=== PATIENT | male | born 1940 | race Caucasian/White ===

== ENCOUNTER → 2016-07-06 | Outpatient (CLI) | payer BC ==
[2011-05-29 14:46] VITALS: BP 112/65
[~2016-07-06] MED LIST: ADVAIR DISKUS 21 DSK IH; ADVAIR DISKUS 51 DSK IH; ALBUTEROL2.5 MG/3 M IH; AMLODIPINE BESY10 MG PO; ASPIRIN 81M81 MG/TA2 PO; ASTELIN NASAL S34 ML NS; COMBIVENT INH14.7 GM IH; DIOVAN HCT 12.51 TAB PO; FISH OIL 1000MG1 CAP PO; FORTAMET1000 MG PO; GLIPIZIDE XL10 MG PO; IPRATROPIUM BROM3 M1 IH; LEVAQUIN 750MG750 M1 PO; LEVOTHYROXIN0.125 MG PO; PRECOSE100 M1 PO; PREDNISONE20 M1 PO; PREDNISONE20 MG PO; PROPRANOLOL HCL80 M1 PO; ZOCOR40 MG PO
== END ==
LOC: LAB 09:21
DX: I10 Essential (primary) hypertension (principal); N18.3 Chronic kidney disease, stage 3 (moderate); J44.9 Chronic obstructive pulmonary disease, unspecified; H61.23 Impacted cerumen, bilateral; R60.9 Edema, unspecified

== ENCOUNTER → 2018-02-14 | Outpatient (CLI) | payer BC ==
[~2018-02-14] VITALS: Ht 165.1 cm; Wt 96.4 kg
[~2018-02-14] MED LIST changes: +ATIVAN1 M1 PO; +ATORVASTATIN CA20 MG PO; +BASAGLAR K100 UNIT/1 SQ; +BYSTOLIC10 MG PO; +CARBIDOPA/LEVODOPA PO; +COZAAR 50MG50 MG/TAB PO; +DALIRESP500 MCG PO; +FLOMAX0.4 MG PO; +HUMALOG KWIKPEN SQ; +LEVOTHYROXIN0.088 MG PO; -LEVOTHYROXIN0.125 MG PO; +ONGLYZA5 MG PO; +PANTOPRAZOLE SO40 MG PO; +PULMICORT0.5 MG/2 M IH; +SERTRALINE HYD100 MG PO; +SYNTHROID RP0.1 MG PO; +WELLBUTRIN 75MG75 MG PO; +XALATAN 2.5 ML2.5 ML OU
[2018-02-14 14:58] LABS: HEMATOCRIT 37.7 % (42.0-52.0); HEMOGLOBIN 11.7 g/dL (13.5-18.0); MEAN CELL VOLUME 92 fl (78-100); MEAN CORPUSCULAR HEMOGLOBIN 28 pg (27-31); MEAN CORPUSCULAR HGB CONC 31 g/dL (33-37); MEAN PLATELET VOLUME 11.4 fl (7.4-10.4); PLATELET COUNT 196 K/mm3 (130-400); RED BLOOD COUNT 4.12 M/mm3 (4.20-5.60); RED CELL DISTRIBUTION WIDTH 19.5 % (11.5-14.5); WHITE BLOOD COUNT 10.4 K/mm3 (4.8-10.8)
[2018-02-14 15:08] LABS: ALBUMIN 4.1 g/dL (3.5-5.0); CALCIUM 9.1 mg/dL (8.4-10.2); POTASSIUM 5.2 mmol/L (3.6-5.0); TOTAL BILIRUBIN 0.3 mg/dL (0.2-1.3); TOTAL PROTEIN 6.5 g/dL (6.3-8.2)
[2018-02-14 15:12] VITALS: BP 138/58
[2018-02-14 16:04] LABS: LYMPHOCYTE 7 % (20-51); MONOCYTE 5 % (3-10); NEUTROPHILS 88 % (42-75)
[2018-02-14 16:05] LABS: MICROCYTOSIS 1+; OVALOCYTES 1+; TEAR DROP CELLS 1+
== END ==
LOC: RAD 14:20
PROVIDERS: Family Medicine
DX: Z01.818 Encounter for other preprocedural examination (principal); E11.36 Type 2 diabetes mellitus with diabetic cataract; E03.9 Hypothyroidism, unspecified

== ENCOUNTER → 2018-02-27 | Day surgery (SDC) | payer MEDICARE ==
[2018-02-14 15:12] VITALS: BP 138/58
== END ==
LOC: MSO 09:52
DX: H25.041 Posterior subcapsular polar age-related cataract, right eye (principal); Z99.81 Dependence on supplemental oxygen; Z79.899 Other long term (current) drug therapy; Z79.4 Long term (current) use of insulin; Z88.0 Allergy status to penicillin; Z88.2 Allergy status to sulfonamides
CPT/HCPCS: 00142; A9270-GY; J0171; J2405; V2632

== ENCOUNTER 2018-05-23 11:44 | Emergency (ER) | payer MEDICARE ==
[~2018-05-23] VITALS: Ht 165.1 cm; Wt 99.5 kg
[~2018-05-23 11:44] MED LIST changes: -AMLODIPINE BESY10 MG PO; -ASPIRIN 81M81 MG/TA2 PO; +ASPIRIN ADULT L81 M3 PO; +NORVASC 10MG10 MG PO
[2018-05-23 12:44] LABS: HEMATOCRIT 41.8 % (42.0-52.0); HEMOGLOBIN 12.9 g/dL (13.5-18.0); MEAN CELL VOLUME 91 fl (78-100); MEAN CORPUSCULAR HEMOGLOBIN 28 pg (27-31); MEAN CORPUSCULAR HGB CONC 31 g/dL (33-37); MEAN PLATELET VOLUME 10.7 fl (7.4-10.4); PLATELET COUNT 166 K/mm3 (130-400); RED BLOOD COUNT 4.59 M/mm3 (4.20-5.60); RED CELL DISTRIBUTION WIDTH 16.7 % (11.5-14.5); WHITE BLOOD COUNT 11.4 K/mm3 (4.8-10.8)
[2018-05-23 13:09] LABS: ALBUMIN 3.8 g/dL (3.5-5.0); CALCIUM 9.1 mg/dL (8.4-10.2); POTASSIUM 4.5 mmol/L (3.6-5.0); TOTAL BILIRUBIN 0.4 mg/dL (0.2-1.3); TOTAL PROTEIN 6.6 g/dL (6.3-8.2)
[2018-05-23] MEDS ORDERED: ALBUTEROL2.5 MG/3 M IH (13:12)
[2018-05-23] MEDS ORDERED: TRELEGY ELLIPT1 EACH IH (13:13)
[2018-05-23] MEDS ORDERED: PIMOZIDE2 MG PO (13:14)
[2018-05-23 13:29] LABS: BAND 1 % (0-10); LYMPHOCYTE 14 % (20-51); MONOCYTE 8 % (3-10); NEUTROPHILS 76 % (42-75)
[2018-05-23 15:06] VITALS: BP 153/64
[2018-05-23 15:23] LABS: URINE APPEARANCE CLEAR; URINE COLOR YELLOW
[2018-05-23 15:24] LABS: URINE BILIRUBIN NEGATIVE (NEGATIVE); URINE BLOOD NEGATIVE (NEGATIVE); URINE GLUCOSE NEGATIVE (NEGATIVE); URINE KETONE NEGATIVE (NEGATIVE); URINE LEUKOCYTE ESTERASE NEGATIVE (NEGATIVE); URINE NITRATE NEGATIVE (NEGATIVE); URINE PROTEIN(semi-quant) TRACE mg/dL (NEGATIVE); URINE UROBILINOGEN NORMAL (NORMAL); URINE WBC 0-1 /hpf (0-3)
== END 2018-05-23 15:06 | disposition other institution (70) ==
LOC: ED 11:44
PROVIDERS: Nurse Practitioner Primary Care
DX: J44.1 Chronic obstructive pulmonary disease with (acute) exacerbation (principal); J22 Unspecified acute lower respiratory infection; R09.02 Hypoxemia; E11.9 Type 2 diabetes mellitus without complications; I11.9 Hypertensive heart disease without heart failure; I25.10 Atherosclerotic heart disease of native coronary artery without angina pectoris; I25.2 Old myocardial infarction; E78.5 Hyperlipidemia, unspecified; K21.9 Gastro-esophageal reflux disease without esophagitis; I73.9 Peripheral vascular disease, unspecified; G47.33 Obstructive sleep apnea (adult) (pediatric); E07.9 Disorder of thyroid, unspecified; Z79.4 Long term (current) use of insulin; Z79.82 Long term (current) use of aspirin; Z98.890 Other specified postprocedural states
CPT/HCPCS: J2930; J7030

== ENCOUNTER 2018-05-23 14:42 | Inpatient (IN) | payer MEDICARE ==
[~2018-05-23] VITALS: Ht 165.1 cm; Wt 145.7 kg
[~2018-05-23 14:42] MED LIST changes: +PIMOZIDE2 MG PO; +TRELEGY ELLIPT1 EACH IH
[2018-05-23 15:38] VITALS: BP 153/64
[2018-05-23 15:54] VITALS: BP 153/64
[2018-05-23 18:31] VITALS: BP 143/76
[2018-05-23 22:48] VITALS: BP 149/61
[2018-05-24 03:31] VITALS: BP 126/61
[2018-05-24 06:14] VITALS: BP 133/65
[2018-05-24 06:23] LABS: HEMATOCRIT 36.6 % (42.0-52.0); HEMOGLOBIN 11.6 g/dL (13.5-18.0); MEAN CELL VOLUME 91 fl (78-100); MEAN CORPUSCULAR HEMOGLOBIN 29 pg (27-31); MEAN CORPUSCULAR HGB CONC 32 g/dL (33-37); PLATELET COUNT 156 K/mm3 (130-400); RED BLOOD COUNT 4.04 M/mm3 (4.20-5.60); RED CELL DISTRIBUTION WIDTH 16.3 % (11.5-14.5); WHITE BLOOD COUNT 10.1 K/mm3 (4.8-10.8)
[2018-05-24 07:01] LABS: ALBUMIN 3.4 g/dL (3.5-5.0); AST-SGOT 20 U/L (17-59); CALCIUM 8.4 mg/dL (8.4-10.2); CARBON DIOXIDE 25 mmol/L (22-30); GLUCOSE 265 mg/dL (75-110); POTASSIUM 4.5 mmol/L (3.6-5.0); SODIUM 137 mmol/L (137-145); TOTAL BILIRUBIN 0.4 mg/dL (0.2-1.3); TOTAL PROTEIN 5.9 g/dL (6.3-8.2)
[2018-05-24 07:04] LABS: ALT/SGPT < 3 U/L (21-72)
[2018-05-24 07:06] LABS: LYMPHOCYTE 2 % (20-51); MONOCYTE 1 % (3-10); NEUTROPHILS 97 % (42-75)
[2018-05-24 11:00] VITALS: BP 198/69
[2018-05-24 14:48] VITALS: BP 145/63
[2018-05-24 18:51] VITALS: BP 154/65
[2018-05-24 23:34] VITALS: BP 149/66
[2018-05-25 02:46] VITALS: BP 150/56
[2018-05-25 06:21] VITALS: BP 139/54
[2018-05-25 11:32] VITALS: BP 139/67
[2018-05-25 14:31] VITALS: BP 146/69
[2018-05-25 19:25] VITALS: BP 152/66
[2018-05-25 23:07] VITALS: BP 136/61
[2018-05-26 03:05] VITALS: BP 162/70
[2018-05-26 06:30] VITALS: BP 166/66
[2018-05-26 08:16] LABS: HEMATOCRIT 38.6 % (42.0-52.0); HEMOGLOBIN 12.2 g/dL (13.5-18.0); MEAN CELL VOLUME 89 fl (78-100); MEAN CORPUSCULAR HEMOGLOBIN 28 pg (27-31); MEAN CORPUSCULAR HGB CONC 32 g/dL (33-37); MEAN PLATELET VOLUME 10.9 fl (7.4-10.4); PLATELET COUNT 164 K/mm3 (130-400); RED BLOOD COUNT 4.35 M/mm3 (4.20-5.60); RED CELL DISTRIBUTION WIDTH 15.8 % (11.5-14.5); WHITE BLOOD COUNT 13.7 K/mm3 (4.8-10.8)
[2018-05-26 08:33] LABS: BAND 2 % (0-10); LYMPHOCYTE 3 % (20-51); MONOCYTE 4 % (3-10); NEUTROPHILS 91 % (42-75)
[2018-05-26 08:36] LABS: CALCIUM 8.9 mg/dL (8.4-10.2); POTASSIUM 4.2 mmol/L (3.6-5.0)
[2018-05-26 11:27] VITALS: BP 119/59
[2018-05-26] MEDS ORDERED: IPRATROPIUM BROM3 M1 IH (14:01)
[2018-05-26] MEDS ORDERED: ZITHROMAX500 M2 PO (14:01)
[2018-05-26] MEDS ORDERED: ENOXAPARIN40 MG/0.1 SQ (14:02)
[2018-05-26] MEDS ORDERED: BUMETANIDE2 M1 PO (14:03)
[2018-05-26] MEDS ORDERED: GUAIFENESIN200 M1 PO (14:05)
[2018-05-26] MEDS ORDERED: BUDESONIDE1 MG/2 ML IH (14:08)
[2018-05-26] MEDS ORDERED: SOLU-MEDRO125 MG/21 IV (14:10)
[2018-05-26] MEDS ORDERED: Patient's Own Medica PO (14:10)
[2018-05-26] MEDS ORDERED: GAS RELIEF 8080 MG PO (14:12)
[2018-05-26 14:55] VITALS: BP 130/63
== END 2018-05-26 15:11 | disposition swing bed (61) | DRG 192 ==
LOC: MED/SURG 14:42
PROVIDERS: Family Medicine; ADMIT Nurse Practitioner Primary Care
DX: J44.1 Chronic obstructive pulmonary disease with (acute) exacerbation (principal); J44.0 Chronic obstructive pulmonary disease with (acute) lower respiratory infection; E03.9 Hypothyroidism, unspecified; I11.0 Hypertensive heart disease with heart failure; I50.9 Heart failure, unspecified; K21.9 Gastro-esophageal reflux disease without esophagitis; E11.9 Type 2 diabetes mellitus without complications; Z79.82 Long term (current) use of aspirin; Z79.4 Long term (current) use of insulin; R09.02 Hypoxemia; J20.9 Acute bronchitis, unspecified; F32.9 Major depressive disorder, single episode, unspecified; L30.9 Dermatitis, unspecified; N40.0 Benign prostatic hyperplasia without lower urinary tract symptoms; R60.0 Localized edema; G25.1 Drug-induced tremor; T38.0X5A Adverse effect of glucocorticoids and synthetic analogues, initial encounter; Y92.239 Unspecified place in hospital as the place of occurrence of the external cause; R58 Hemorrhage, not elsewhere classified; T80.89XA Other complications following infusion, transfusion and therapeutic injection, initial encounter; M79.89 Other specified soft tissue disorders
CPT/HCPCS: C9113; J0456; J1650; J1815; J1956; J2930; J7030; J7050

== ENCOUNTER 2018-05-26 14:19 | Inpatient (IN) | payer MEDICARE ==
[~2018-05-26] VITALS: Ht 165.1 cm; Wt 99.5 kg
[~2018-05-26 14:19] MED LIST changes: +BUDESONIDE1 MG/2 ML IH; +BUMETANIDE2 M1 PO; +ENOXAPARIN40 MG/0.1 SQ; +GAS RELIEF 8080 MG PO; +GUAIFENESIN200 M1 PO; +Patient's Own Medica PO; +SOLU-MEDRO125 MG/21 IV; +ZITHROMAX500 M2 PO
--- NOTE | 2018-05-26 14:43 | NUR ---
Assessment complete. Patient resting in chair at this time. Denies pain. Cont on baseline 2L/NC. Able to voice wants/needs, none at this time. Call light and personal belongings within reach. Will cont to monitor.
[2018-05-26 14:59] VITALS: BP 130/63
[2018-05-26 15:04] VITALS: BP 130/63
[2018-05-26 18:26] VITALS: BP 137/61
--- NOTE | 2018-05-26 18:42 | NUR ---
Reported off to JIM Cuellar
--- NOTE | 2018-05-26 19:30 | NUR ---
Report received from Alejandrina JANG. Up in recliner with oxygen in place at 2L/NC. Denies pain or needs. Visitor in room.
--- NOTE | 2018-05-26 19:45 | NUR ---
Dr. Hermosillo contacted for clarification of Solumedrol. Give 125 MG IV Q 8 hours vs Q 6 as ordered on MAY. Give at -- and 14 then taper per written orders.
--- NOTE | 2018-05-26 20:30 | NUR ---
HS medications given. Takes without difficulty. Assessment completed. Lungs with coarse rhonci and expiratory wheezes. States breathing is improved from admission, can walk to and from BR with less SOB. Has not ambulated out of room. Up ad-bradley but calls for assist PRN. Denies pain, wants or needs. Uses I.S. and pulls 2000 MLx10
[2018-05-27 06:23] VITALS: BP 170/66
[2018-05-27 06:45] VITALS: BP 170/66
--- NOTE | 2018-05-27 06:55 | NUR ---
Report to Dona JANG.
--- NOTE | 2018-05-27 09:00 | NUR ---
Pt sitting up in chair. Reports some dyspnea on exertion but reports its improving. Oxygen on 2L via nasal cannula. Bilateral upper arms edematous and puffy with purple discoloration.
--- NOTE | 2018-05-27 11:03 | NUR ---
dressing changed to skin tear to right upper arm. Non stick telfa placed and wrapped loosely with coban. Pt tolerates well
--- NOTE | 2018-05-27 13:06 | NUR ---
Report received from SUHAIL Carcamo
--- NOTE | 2018-05-27 15:23 | NUR ---
Pt agreeable to going outside in the sunshine for a short time via w/c - 02 continues at 2 L/NC. Pt visits with nurse while outside and tolerates well. Returns to room after about 10 minutes as OT/PT looking to work with him.
--- NOTE | 2018-05-27 15:30 | NUR ---
Pt's arm hit door jam upon entry into bathroom while walking w/ OT. Noted to have superficial skin tear. 4 x 4 applied and coban until pt done ADL's and back in recliner. Mild bleeding.
--- NOTE | 2018-05-27 16:30 | NUR ---
right FA skin tear approximately 3/4 inch in length from earlier cleansed w/ NS, edges well approximated, benzoin applied around perimeter and 1/4 inch steri strips x 2 applied - edges well approximated. Left open to air. No current bleeding.
[2018-05-27 18:25] VITALS: BP 170/71
--- NOTE | 2018-05-27 19:00 | NUR ---
Report to JIM Cuellar.
--- NOTE | 2018-05-27 20:00 | NUR ---
Up in recliner. A/O x4. Denies pain. Oxygen in place at 2L/NC. Uses I.S. and Pulls 2250 ML x10. Uses flutter valve x10 Reps. Assessment completed. Denies wants or needs.
--- NOTE | 2018-05-27 20:20 | NUR ---
Accu-check 427. Vashti LOZANON notified. Follow SS insulin orders along with scheduled Levemir.
--- NOTE | 2018-05-28 05:34 | NUR ---
Awakened for AM medications and vital signs. Bilateral hands noted to be more edematous then last night. [facility]. If not help will try a laxative. [facility] Denies pain. Oxygen in place at 2L/NC.
[2018-05-28 06:12] VITALS: BP 184/66
--- NOTE | 2018-05-28 07:24 | NUR ---
Report to Jeniffer JANG.
--- NOTE | 2018-05-28 17:45 | NUR ---
Patient alert and oriented, pleasant. Cooperates with medication administration and therapy. Reports cough is irritating as he "can't get anything to come up". No complaint of pain, denies needs at this time .
[2018-05-28 18:52] VITALS: BP 180/76
--- NOTE | 2018-05-28 19:30 | NUR ---
REPORT RECEIVED FROM SUHAIL PEREZ
--- NOTE | 2018-05-28 19:47 | NUR ---
Report given to Chelsey Cross RN
--- NOTE | 2018-05-28 20:00 | NUR ---
PATIENT'S SHIFT ASSESSMENT COMPLETE. PATIENT ALERT AND ORIENTED X4. DENIES ANY PAIN OR DISCOMFORTS AT HTIS TIME. REPORTS HAVING SHORTNESS OF BREATH BUT IT IS NOT ANY WORSE THAN BASELINE. PATIENT HAS TIGHT COUGH. PATIENT'S LUNGS DIMINISHED WITH EXP WHEEZES TO LEFT LOWER LOBE. PATIENT STATES "MY LUNGS ARE STILL PRETTY TIGHT" PATIENT HAS EDEMA TO BILAT UPPER EXT. +1 EDEMA TO BILAT LOWER EXT. PATIENT STATES "I DON'T KNOW WHY I STARTED SWELLING UP" PATIENT HAS TELFA SECURED WITH COBAN TO RIGHT UPPER EXT. SKIN TEAR TO RIGHT FOREARM WITH STERI STRIPS IN PLACE. TELFA APPLIED AND SECUIRED WITH COBAN DUE TO AREA DRAINING. PATIENT HAS LARGE DARK PURPLE BRUISE ACROSS LOWER ABD. PATIENT REPORTS BRUISING IS FROM THE NEEDLE STICKS. PATIENT ON OXYGEN VIA NASAL CANNULA AT 2L. PATIENT'S CALL LIGHT WITHIN REACH.
--- NOTE | 2018-05-29 01:42 | NUR ---
report given to tyshawn campos rn
[2018-05-29 06:09] LABS: HEMATOCRIT 39.1 % (42.0-52.0); HEMOGLOBIN 12.3 g/dL (13.5-18.0); MEAN CELL VOLUME 89 fl (78-100); MEAN CORPUSCULAR HEMOGLOBIN 28 pg (27-31); MEAN CORPUSCULAR HGB CONC 32 g/dL (33-37); MEAN PLATELET VOLUME 11.1 fl (7.4-10.4); PLATELET COUNT 139 K/mm3 (130-400); RED BLOOD COUNT 4.38 M/mm3 (4.20-5.60); RED CELL DISTRIBUTION WIDTH 15.6 % (11.5-14.5)
[2018-05-29 06:21] LABS: CALCIUM 8.8 mg/dL (8.4-10.2); POTASSIUM 4.1 mmol/L (3.6-5.0)
[2018-05-29 06:24] VITALS: BP 176/73
[2018-05-29 06:41] LABS: BAND 1 % (0-10)
[2018-05-29 06:42] LABS: LYMPHOCYTE 3 % (20-51); MONOCYTE 4 % (3-10); NEUTROPHILS 92 % (42-75)
--- NOTE | 2018-05-29 11:01 | NUR ---
ASSESSMENT COMPLETED AT 0800. PATIENT SITTING UP IN CHAIR VISITING WITH DR. POWERS. ORDERS WERE WRITTEN TO INCREASE BP MEDICATION WELL NIGHTTIME INSULIN DOSE. DR. POWERS STATED IT IS OK FOR PATIENT TO HAVE MILK AND SOME BEEF OCCASSIONALLY. PATIENT REPORTS PRODUCTIVE COUGH WITH THICK WHITE SPUTUM AND DYSPNEA ON EXERTION. HE DENIES ANY PAIN COMPLAINTS AND TOOK HIS ORAL MEDICATIONS WITHOUT DIFFICULTIES. NOTED SKIN TEARS TO RIGHT FOREARM AND UPPER ARM, CLEANSED WITH NS AND APPLIED TELFA WITH COBAN FOR SECURITY. PATIENT REPORTS BM YESTERDAY BUT MAY NEED PRUNE JUICE TODAY. EDEMATOUS TO BILATERAL UPPER AND LOWER EXTREMITIES. DR. POWERS ORDERD FOR HEAT THERAPY TO LEFT ARM AND ELEVATION.
--- NOTE | 2018-05-29 15:33 | NUR ---
Pt reports increased SOB and labored breathing. Worse when working with PT. Pt very frustrated "I wasnt even hardly doing anything" Pt continues to voice concerns that he is not improving or getting better. PRN albuterol treatment provided. Pt encouraged to continue working with PT and on breathing treatments. K pad applied to left arm.
[2018-05-29 19:11] VITALS: BP 125/76
--- NOTE | 2018-05-29 19:45 | NUR ---
Patient sitting up in chair, is alert and oriented x 3, resp even/unlabored at rest, has bilateral forearms elevated on pillows and towels, clear yellow drainage noted from both forearms, both arms very swollen, skin thin and tight, weeping noted, patient also noted to have rounded firm abdomen, when asked, he admits to feeling bloated and bigger belly than normal, will continue to monitor, call light within reach, patient denies any needs at this time
--- NOTE | 2018-05-29 22:15 | NUR ---
Patient sitting up in bed with some difficulty breathing, c/o "not getting any air" nurse checks oxygen, it is on 2L/NC at this time and working properly, patient just got himself from the chair, into the bathroom to void and perform HS cares and then back into bed, he is very wiped out and having trouble breathing, takes several minutes to recover, is frusterated that he doesn't seem to be getting better and cannot tolerate even minimal exercise, reassurance given and nurse stayed with patient until he was breathing better, will continue to monitor
[2018-05-30 06:20] VITALS: BP 133/71
[2018-05-30 12:02] LABS: ALBUMIN 3.1 g/dL (3.5-5.0); POTASSIUM 4.4 mmol/L (3.6-5.0); TOTAL BILIRUBIN 0.5 mg/dL (0.2-1.3); TOTAL PROTEIN 5.5 g/dL (6.3-8.2)
[2018-05-30 12:04] LABS: D-DIMER 0.67 mg/L FEU (0.15-0.50)
[2018-05-30 12:12] LABS: HEMATOCRIT 39.4 % (42.0-52.0); HEMOGLOBIN 12.5 g/dL (13.5-18.0); MEAN CELL VOLUME 90 fl (78-100); MEAN CORPUSCULAR HEMOGLOBIN 29 pg (27-31); MEAN CORPUSCULAR HGB CONC 32 g/dL (33-37); MEAN PLATELET VOLUME 11.3 fl (7.4-10.4); PLATELET COUNT 145 K/mm3 (130-400); RED BLOOD COUNT 4.39 M/mm3 (4.20-5.60); RED CELL DISTRIBUTION WIDTH 15.7 % (11.5-14.5)
[2018-05-30 12:17] LABS: WHITE BLOOD COUNT 20.7 K/mm3 (4.8-10.8)
[2018-05-30 12:34] LABS: LYMPHOCYTE 5 % (20-51); MONOCYTE 2 % (3-10); NEUTROPHILS 93 % (42-75)
--- NOTE | 2018-05-30 15:16 | NUR ---
PRACTICAL NURSE visited pt. and discussed CT scan result with pt and his (and 2 other family--young adult children?). Minimal improvement in clearing of lungs; PRACTICAL NURSE suggested transfer to [facility] in [place] so he can be followed closely by in-house pulmonogist; he was hesitant but agreeable. Informed of increasing WBC (now >20,000) and other abnormal lab values of concern.
[2018-05-30 16:58] VITALS: BP 133/71
--- NOTE | 2018-05-30 17:42 | NUR ---
Pt alert and Ox4. Aware of transfer to [facility] and purpose. v/s at 1630 97.8 F (oral); 158/78; 80; 22 with O2 2 L/min, SaO2 95%. FSBS 138 and no need for Novolog insulin. Pt. has had supper and meds scheduled for 1700. EMS here for transport with O2 @ 2 L/min. and monitoring. Pt. left [facility] at 1730 via stretcher. [phone] at 1735.
== END 2018-05-30 17:35 | disposition short-term general hospital (02) | DRG 948 ==
LOC: MED/SURG 14:19
PROVIDERS: Nurse Practitioner Family; ADMIT Family Medicine
DX: R53.81 Other malaise (principal); J44.1 Chronic obstructive pulmonary disease with (acute) exacerbation; I10 Essential (primary) hypertension; I50.9 Heart failure, unspecified; E11.9 Type 2 diabetes mellitus without complications; Z79.4 Long term (current) use of insulin; F41.8 Other specified anxiety disorders; Z85.89 Personal history of malignant neoplasm of other organs and systems; R25.1 Tremor, unspecified; Z87.891 Personal history of nicotine dependence
CPT/HCPCS: J1650; J1815; J1940; J2930; Q9967

== ENCOUNTER → 2018-07-24 | Day surgery (SDC) | payer MEDICARE ==
[2018-07-24 10:25] LABS: CALCIUM 9.5 mg/dL (8.8-10.0); POTASSIUM 4.1 mmol/L (3.5-5.1)
== END ==
LOC: MSO 07:21
PROVIDERS: Ophthalmology
DX: H26.9 Unspecified cataract (principal); E11.36 Type 2 diabetes mellitus with diabetic cataract; J44.9 Chronic obstructive pulmonary disease, unspecified; I10 Essential (primary) hypertension; Z88.0 Allergy status to penicillin; Z79.4 Long term (current) use of insulin; Z88.2 Allergy status to sulfonamides
CPT/HCPCS: 00142; A9270-GY; J0171; J2405; V2632

== ENCOUNTER → 2019-04-25 | Outpatient (CLI) | payer MEDICARE | LOC: RAD 14:56 | DX: J44.1 Chronic obstructive pulmonary disease with (acute) exacerbation (principal); J01.90 Acute sinusitis, unspecified; G47.33 Obstructive sleep apnea (adult) (pediatric) ==

== ENCOUNTER → 2019-09-17 | Outpatient (CLI) | payer MEDICARE | LOC: RAD 09:48 | DX: M51.36 Other intervertebral disc degeneration, lumbar region (principal); M43.16 Spondylolisthesis, lumbar region; J44.9 Chronic obstructive pulmonary disease, unspecified; I51.9 Heart disease, unspecified; I25.10 Atherosclerotic heart disease of native coronary artery without angina pectoris; M79.604 Pain in right leg ==

== ENCOUNTER → 2020-02-06 | Outpatient (CLI) | payer MEDICARE ==
[2020-02-06 12:15] LABS: POTASSIUM 3.9 mmol/L (3.5-5.1)
[2020-02-06 12:16] LABS: CALCIUM 9.3 mg/dL (8.3-10.5)
== END ==
LOC: LAB 11:05
PROVIDERS: Family Medicine
DX: M54.40 Lumbago with sciatica, unspecified side (principal); N18.30 Chronic kidney disease, stage 3 unspecified

== ENCOUNTER 2020-08-12 11:37 | Emergency (ER) | payer MEDICARE ==
[2020-08-12 12:33] LABS: BASO # 0.05 (0.02-0.10); EOS # 0.18 (0.04-0.40); EOS % 1.7 % (0.0-4.0); HEMATOCRIT 31.8 % (42.0-52.0); HEMOGLOBIN 9.7 g/dL (13.5-18.0); LYMPH# 0.52 (1.50-4.00); MEAN CELL VOLUME 91 fl (78-100); MEAN CORPUSCULAR HEMOGLOBIN 28 pg (27-31); MEAN CORPUSCULAR HGB CONC 31 g/dL (33-37); MEAN PLATELET VOLUME 11.2 fl (7.4-10.4); MONO # 0.62 (0.20-0.80); NEU # 9.22 (1.40-6.50); PLATELET COUNT 195 K/mm3 (130-400); RED BLOOD COUNT 3.51 M/mm3 (4.20-5.60); RED CELL DISTRIBUTION WIDTH 17.3 % (11.5-14.5); WHITE BLOOD COUNT 10.7 K/mm3 (4.8-10.8)
[2020-08-12 12:36] LABS: ALBUMIN 3.7 g/dL (3.4-4.8); SODIUM 139 mmol/L (136-145)
[2020-08-12 12:37] LABS: CALCIUM 9.3 mg/dL (8.3-10.5)
[2020-08-12 12:38] LABS: GLUCOSE 116 mg/dL (75-110)
[2020-08-12 12:39] LABS: TOTAL PROTEIN 6.1 g/dL (6.2-8.1)
[2020-08-12 12:40] LABS: CARBON DIOXIDE 25 mmol/L (23-31); TOTAL BILIRUBIN 0.3 mg/dL (0.2-1.2)
[2020-08-12 12:44] LABS: AST-SGOT 19 U/L (5-34)
[2020-08-12 12:45] LABS: ALT/SGPT 12 U/L (0-55)
[2020-08-12 12:53] LABS: TROPONIN-I < 0.03 ng/mL (<0.030)
[2020-08-12] MEDS ORDERED: NORVASC 10MG10 MG PO (13:02)
[2020-08-12] MEDS ORDERED: LIPITOR 40MG TA40 MG PO (13:05)
[2020-08-12] MEDS ORDERED: CLOPIDOGREL PO (13:06)
[2020-08-12 13:08] LABS: D-DIMER 0.78 mg/L FEU (0.15-0.50)
[2020-08-12] MEDS ORDERED: FEXOFENADINE H180 M1 PO (13:08)
[2020-08-12 14:53] LABS: URINE APPEARANCE CLEAR; URINE COLOR YELLOW; URINE PROTEIN(semi-quant) TRACE mg/dL (NEGATIVE)
[2020-08-12 14:54] LABS: URINE BILIRUBIN NEGATIVE (NEGATIVE); URINE BLOOD TRACE (NEGATIVE); URINE GLUCOSE NEGATIVE (NEGATIVE); URINE KETONE NEGATIVE (NEGATIVE); URINE LEUKOCYTE ESTERASE NEGATIVE (NEGATIVE); URINE NITRATE NEGATIVE (NEGATIVE); URINE UROBILINOGEN NORMAL (NORMAL)
[2020-08-12] MEDS ORDERED: ELIQUIS5 M1 PO (18:25)
[2020-08-12 18:49] VITALS: BP 163/62
== END 2020-08-12 18:50 | disposition home or self-care (01) ==
LOC: ED 11:37
PROVIDERS: Nurse Practitioner Family
DX: J43.9 Emphysema, unspecified (principal); M79.89 Other specified soft tissue disorders; I25.10 Atherosclerotic heart disease of native coronary artery without angina pectoris; I25.2 Old myocardial infarction; I50.9 Heart failure, unspecified; E11.9 Type 2 diabetes mellitus without complications; Z87.891 Personal history of nicotine dependence; Z79.82 Long term (current) use of aspirin; Z79.4 Long term (current) use of insulin; Z79.02 Long term (current) use of antithrombotics/antiplatelets; Z79.51 Long term (current) use of inhaled steroids
CPT/HCPCS: J0696; J1940; J7030; Q9967

== ENCOUNTER 2021-03-09 07:46 | Emergency (ER) | payer MEDICARE ==
[~2021-03-09] VITALS: Ht 165.1 cm; Wt 97.3 kg
[~2021-03-09 07:46] MED LIST changes: +CLOPIDOGREL PO; +ELIQUIS5 M1 PO; +FEXOFENADINE H180 M1 PO; +LIPITOR 40MG TA40 MG PO
[2021-03-09 08:33] LABS: HEMOGLOBIN 12.5 g/dL (13.5-18.0); MEAN CELL VOLUME 92 fl (78-100); MEAN CORPUSCULAR HEMOGLOBIN 29 pg (27-31); MEAN CORPUSCULAR HGB CONC 31 g/dL (33-37); PLATELET COUNT 162 K/mm3 (130-400); RED BLOOD COUNT 4.33 M/mm3 (4.20-5.60); RED CELL DISTRIBUTION WIDTH 16.4 % (11.5-14.5); WHITE BLOOD COUNT 9.9 K/mm3 (4.8-10.8)
[2021-03-09 08:45] LABS: ALBUMIN 3.7 g/dL (3.4-4.8); SODIUM 140 mmol/L (136-145)
[2021-03-09 08:46] LABS: CALCIUM 9.4 mg/dL (8.3-10.5)
[2021-03-09 08:47] LABS: GLUCOSE 135 mg/dL (75-110)
[2021-03-09 08:48] LABS: CARBON DIOXIDE 25 mmol/L (23-31)
[2021-03-09 08:49] LABS: TOTAL BILIRUBIN 0.3 mg/dL (0.2-1.2)
[2021-03-09 08:53] LABS: AST-SGOT 21 U/L (5-34)
[2021-03-09 08:54] LABS: ALT/SGPT 14 U/L (0-55)
[2021-03-09 08:58] LABS: LYMPHOCYTE 4 % (20-51); MONOCYTE 5 % (3-10); NEUTROPHILS 85 % (42-75)
[2021-03-09 09:00] LABS: TROPONIN-I < 0.030 ng/mL (<0.030)
[2021-03-09] MEDS ORDERED: ZITHROMAX Z PA250 MG PO (09:57)
[2021-03-09] MEDS ORDERED: PREDNISONE20 M1 PO (09:57)
[2021-03-09 10:08] VITALS: BP 148/64
[2021-03-09] MEDS ORDERED: SKIN TREATMENT400 GM TP (11:22)
== END 2021-03-09 10:10 | disposition home or self-care (01) ==
LOC: ED 07:46
PROVIDERS: Physician Assistant
DX: J40 Bronchitis, not specified as acute or chronic (principal); J44.1 Chronic obstructive pulmonary disease with (acute) exacerbation; I13.0 Hypertensive heart and chronic kidney disease with heart failure and stage 1 through stage 4 chronic kidney disease, or unspecified chronic kidney disease; N18.30 Chronic kidney disease, stage 3 unspecified; N40.0 Benign prostatic hyperplasia without lower urinary tract symptoms; I25.10 Atherosclerotic heart disease of native coronary artery without angina pectoris; D64.9 Anemia, unspecified; E78.00 Pure hypercholesterolemia, unspecified; E66.9 Obesity, unspecified; D50.9 Iron deficiency anemia, unspecified; E11.22 Type 2 diabetes mellitus with diabetic chronic kidney disease; I50.30 Unspecified diastolic (congestive) heart failure; Z87.891 Personal history of nicotine dependence; Z79.899 Other long term (current) drug therapy; Z79.51 Long term (current) use of inhaled steroids; Z79.01 Long term (current) use of anticoagulants; Z79.82 Long term (current) use of aspirin; Z79.4 Long term (current) use of insulin; Z79.02 Long term (current) use of antithrombotics/antiplatelets; Z68.35 Body mass index [BMI] 35.0-35.9, adult; Z20.822 Contact with and (suspected) exposure to COVID-19
CPT/HCPCS: J2930

== ENCOUNTER 2021-08-09 08:10 | Emergency (ER) | payer MEDICARE ==
[~2021-08-09] VITALS: Wt 97.3 kg
[~2021-08-09 08:10] MED LIST changes: +SKIN TREATMENT400 GM TP; +ZITHROMAX Z PA250 MG PO
[2021-08-09 09:03] LABS: ALBUMIN 3.8 g/dL (3.4-4.8)
[2021-08-09 09:04] LABS: POTASSIUM 4.1 mmol/L (3.5-5.1)
[2021-08-09 09:05] LABS: CALCIUM 9.4 mg/dL (8.3-10.5)
[2021-08-09 09:06] LABS: TOTAL PROTEIN 6.1 g/dL (6.2-8.1)
[2021-08-09 09:08] LABS: TOTAL BILIRUBIN 0.3 mg/dL (0.2-1.2)
[2021-08-09 10:04] LABS: HEMATOCRIT 23.1 % (42.0-52.0); MEAN CELL VOLUME 89 fl (78-100); MEAN CORPUSCULAR HEMOGLOBIN 26 pg (27-31); MEAN CORPUSCULAR HGB CONC 29 g/dL (33-37); MEAN PLATELET VOLUME 11.9 fl (7.4-10.4); PLATELET COUNT 199 K/mm3 (130-400); RED CELL DISTRIBUTION WIDTH 17.6 % (11.5-14.5); WHITE BLOOD COUNT 9.2 K/mm3 (4.8-10.8)
[2021-08-09 10:06] LABS: HEMOGLOBIN 6.7 g/dL (13.5-18.0)
[2021-08-09 10:21] LABS: BAND 2 % (0-10); LYMPHOCYTE 3 % (20-51); MONOCYTE 2 % (3-10); NEUTROPHILS 92 % (42-75)
[2021-08-09 10:22] LABS: HYPOCHROMIA 1+
[2021-08-09 10:24] LABS: TEAR DROP CELLS 1+
[2021-08-09 11:42] LABS: URINE APPEARANCE CLEAR; URINE BILIRUBIN NEGATIVE (NEGATIVE); URINE BLOOD NEGATIVE (NEGATIVE); URINE COLOR LIGHT YELLOW; URINE GLUCOSE NEGATIVE (NEGATIVE); URINE KETONE NEGATIVE (NEGATIVE); URINE LEUKOCYTE ESTERASE 1+ (NEGATIVE); URINE NITRATE NEGATIVE (NEGATIVE); URINE PROTEIN(semi-quant) NEGATIVE (NEGATIVE); URINE UROBILINOGEN NORMAL (NORMAL)
[2021-08-09 13:11] VITALS: BP 129/57
== END 2021-08-09 12:42 | disposition short-term general hospital (02) ==
LOC: ED 08:10
PROVIDERS: Physician Assistant
DX: K92.2 Gastrointestinal hemorrhage, unspecified (principal); J44.9 Chronic obstructive pulmonary disease, unspecified; I13.0 Hypertensive heart and chronic kidney disease with heart failure and stage 1 through stage 4 chronic kidney disease, or unspecified chronic kidney disease; I50.9 Heart failure, unspecified; E11.22 Type 2 diabetes mellitus with diabetic chronic kidney disease; N18.30 Chronic kidney disease, stage 3 unspecified; D63.1 Anemia in chronic kidney disease; Z28.310 Unvaccinated for COVID-19
CPT/HCPCS: C9113; J2930; J7030

== ENCOUNTER → 2021-08-19 | Outpatient (CLI) | payer MEDICARE ==
[2021-08-19 11:26] LABS: HEMATOCRIT 36.5 % (42.0-52.0); HEMOGLOBIN 10.9 g/dL (13.5-18.0); MEAN CELL VOLUME 88 fl (78-100); MEAN CORPUSCULAR HEMOGLOBIN 26 pg (27-31); MEAN CORPUSCULAR HGB CONC 30 g/dL (33-37); PLATELET COUNT 228 K/mm3 (130-400); RED BLOOD COUNT 4.16 M/mm3 (4.20-5.60); RED CELL DISTRIBUTION WIDTH 18.9 % (11.5-14.5); WHITE BLOOD COUNT 16.2 K/mm3 (4.8-10.8)
[2021-08-19 11:29] LABS: POTASSIUM 3.7 mmol/L (3.5-5.1)
[2021-08-19 11:30] LABS: CALCIUM 9.5 mg/dL (8.3-10.5)
[2021-08-19 12:43] LABS: LYMPHOCYTE 3 % (20-51); MONOCYTE 3 % (3-10); NEUTROPHILS 92 % (42-75)
[2021-08-19 12:46] LABS: TEAR DROP CELLS 1+
== END ==
LOC: LAB 11:06
PROVIDERS: Family Medicine
DX: J44.9 Chronic obstructive pulmonary disease, unspecified (principal); D64.9 Anemia, unspecified; I10 Essential (primary) hypertension

== ENCOUNTER 2022-06-08 07:01 | Emergency (ER) | payer MEDICARE ==
[~2022-06-08] VITALS: Wt 95.1 kg
[2022-06-08 08:02] LABS: HEMATOCRIT 42.6 % (42.0-52.0); HEMOGLOBIN 13.6 g/dL (13.5-18.0); MEAN CELL VOLUME 91 fl (78-100); MEAN CORPUSCULAR HEMOGLOBIN 29 pg (27-31); MEAN CORPUSCULAR HGB CONC 32 g/dL (33-37); MEAN PLATELET VOLUME 11.5 fl (7.4-10.4); PLATELET COUNT 141 K/mm3 (130-400); RED BLOOD COUNT 4.69 M/mm3 (4.20-5.60); RED CELL DISTRIBUTION WIDTH 14.5 % (11.5-14.5); WHITE BLOOD COUNT 10.2 K/mm3 (4.8-10.8)
[2022-06-08 08:10] LABS: ALBUMIN 3.4 g/dL (3.4-4.8); POTASSIUM 4.3 mmol/L (3.5-5.1); SODIUM 138 mmol/L (136-145)
[2022-06-08 08:11] LABS: CALCIUM 9.5 mg/dL (8.3-10.5)
[2022-06-08 08:13] LABS: GLUCOSE 197 mg/dL (75-110); TOTAL PROTEIN 5.6 g/dL (6.2-8.1)
[2022-06-08 08:14] LABS: CARBON DIOXIDE 24 mmol/L (23-31); TOTAL BILIRUBIN 0.3 mg/dL (0.2-1.2)
[2022-06-08 08:18] LABS: AST-SGOT 19 U/L (5-34)
[2022-06-08 08:19] LABS: ALT/SGPT 13 U/L (0-55)
[2022-06-08 08:30] LABS: TROPONIN-I < 0.030 ng/mL (<0.030)
[2022-06-08 08:37] LABS: LYMPHOCYTE 4 % (20-51); MONOCYTE 4 % (3-10); NEUTROPHILS 91 % (42-75)
[2022-06-08 08:38] LABS: OVALOCYTES 1+
[2022-06-08] MEDS ORDERED: PREDNISONE20 MG PO (09:14)
[2022-06-08 09:40] VITALS: BP 164/76
== END 2022-06-08 09:30 | disposition home or self-care (01) ==
LOC: ED 07:01
PROVIDERS: Family Medicine
DX: J44.9 Chronic obstructive pulmonary disease, unspecified (principal); E66.9 Obesity, unspecified; Z99.81 Dependence on supplemental oxygen; Z86.718 Personal history of other venous thrombosis and embolism; Z79.01 Long term (current) use of anticoagulants
CPT/HCPCS: J2930

== ENCOUNTER → 2023-01-03 | Outpatient (CLI) | payer MEDICARE | LOC: LAB 13:42 | DX: I10 Essential (primary) hypertension (principal); M54.32 Sciatica, left side; E78.2 Mixed hyperlipidemia; D63.8 Anemia in other chronic diseases classified elsewhere; Z95.4 Presence of other heart-valve replacement ==

== ENCOUNTER → 2024-02-20 | Outpatient (CLI) | payer MEDICARE | LOC: RAD 09:38 | DX: R07.81 Pleurodynia (principal); W19.XXXA Unspecified fall, initial encounter ==

== ENCOUNTER → 2024-06-06 | Outpatient (REF) | payer MEDICARE ==
[2024-06-06 10:06] LABS: PH-URINE 5.5 (5.0 - 8.0); URINE APPEARANCE SLIGHTLY CLOUDY (CLEAR); URINE BILIRUBIN NEGATIVE (NEGATIVE); URINE COLOR YELLOW (YELLOW); URINE GLUCOSE NEGATIVE (NEGATIVE); URINE KETONE NEGATIVE (NEGATIVE); URINE PROTEIN(semi-quant) 2+ (NEGATIVE)
[2024-06-06 10:07] LABS: URINE BLOOD NEGATIVE (NEGATIVE); URINE LEUKOCYTE ESTERASE NEGATIVE (NEGATIVE); URINE MUCUS PRESENT (NOT PRESENT); URINE NITRATE NEGATIVE (NEGATIVE); URINE WBC 0-1 /hpf (0-3)
== END ==
LOC: LAB 09:43
PROVIDERS: Family Medicine
DX: R30.0 Dysuria (principal)